=== PATIENT | male | born 1945 | race Caucasian/White ===

== ENCOUNTER → 2016-09-19 | Outpatient (CLI) | payer MEDICARE | END | disposition home or self-care (01) | LOC: GMAL 11:22 | PROVIDERS: ATTEND Family Medicine | DX: D51.3 Other dietary vitamin B12 deficiency anemia (principal); E55.9 Vitamin D deficiency, unspecified; E29.1 Testicular hypofunction ==

== ENCOUNTER → 2017-10-15 | Outpatient (CLI) | payer MEDICARE | LOC: GMAL 11:34 | PROVIDERS: ATTEND Family Medicine | DX: D51.3 Other dietary vitamin B12 deficiency anemia (principal); E29.1 Testicular hypofunction; R53.82 Chronic fatigue, unspecified; E55.9 Vitamin D deficiency, unspecified; R03.0 Elevated blood-pressure reading, without diagnosis of hypertension; Z12.5 Encounter for screening for malignant neoplasm of prostate | CPT/HCPCS: 82306; 82607; 84402; 84403; 84443; G0103 ==

== ENCOUNTER → 2018-11-02 | Outpatient (CLI) | payer MEDICARE | LOC: GMAL 11:29 | PROVIDERS: ATTEND Family Medicine | DX: E29.1 Testicular hypofunction (principal); Z12.5 Encounter for screening for malignant neoplasm of prostate; R53.82 Chronic fatigue, unspecified; D51.3 Other dietary vitamin B12 deficiency anemia; E55.9 Vitamin D deficiency, unspecified; I10 Essential (primary) hypertension; R73.09 Other abnormal glucose; Z79.899 Other long term (current) drug therapy | CPT/HCPCS: 82306; 82607; 84402; 84403; 84443; G0103 ==

== ENCOUNTER 2018-12-21 05:10 | Day surgery (SDC) | payer MEDICARE ==
[2018-12-21] MEDS ORDERED: TROP 1%/CYCLOPEN 1%/PHENYL 2% DROPS ONE (08:50)
[2018-12-21] MEDS ORDERED: PROPARACAINE 0.5% OPHTH SOL 15 ML BTTL ONE (08:50)
[2018-12-21] MEDS ORDERED: MIDAZOLAM INJ 2 MG/2 ML VIAL ONE (10:20)
[2018-12-21] MEDS ORDERED: MOXIFLOXACIN HCL (OPHTH) 1 DROP DROPS RIGHT_EYE ONE ×2 (10:29→10:44)
[2018-12-21] MEDS ORDERED: DEXAMETHASONE 0.1% OPHTH SOL 1 DROP RIGHT_EYE ONE ×2 (10:29→10:44)
[2018-12-21] MEDS ORDERED: LIDOCAINE 1% MPF 2 ML VIAL INJ ONE ×2 (10:29→10:34)
[2018-12-21] MEDS ORDERED: BRIMONIDINE 0.2% OPHTH DROPS RIGHT_EYE ONE ×2 (10:30→10:44)
[2018-12-21] MEDS ORDERED: TOBRAMYCIN SULF 0.3 % OPHT SOL 1 DROP RIGHT_EYE ONE ×2 (10:30→10:44)
== END 2018-12-21 11:27 | disposition home or self-care (01) ==
LOC: AMB 05:10
PROVIDERS: ATTEND Ophthalmology
DX: H25.11 Age-related nuclear cataract, right eye (principal); I10 Essential (primary) hypertension; Z79.899 Other long term (current) drug therapy
CPT/HCPCS: 00142; 66984; J2250

== ENCOUNTER → 2019-03-08 | Outpatient (CLI) | payer MEDICARE | LOC: GMAL 11:01 | PROVIDERS: ATTEND Family Medicine | DX: R97.20 Elevated prostate specific antigen [PSA] (principal) ==

== ENCOUNTER → 2020-03-22 | Outpatient (CLI) | payer MEDICARE | LOC: GMAL 11:02 | PROVIDERS: ATTEND Family Medicine | DX: R53.82 Chronic fatigue, unspecified (principal); E53.8 Deficiency of other specified B group vitamins; I10 Essential (primary) hypertension; E55.9 Vitamin D deficiency, unspecified; E29.1 Testicular hypofunction; R97.20 Elevated prostate specific antigen [PSA] ==

== ENCOUNTER → 2020-04-04 | Outpatient (CLI) | payer MEDICARE | LOC: GMAL 11:03 | PROVIDERS: ATTEND Family Medicine | DX: M79.641 Pain in right hand (principal) ==